=== PATIENT | female | born 1990 ===

== ENCOUNTER 2016-05-21 00:42 | Emergency (ER) | payer MEDICAID, SELFPAY ==
[2016-05-21 01:33] VITALS: BMI 37.0
[2016-05-21] MEDS ORDERED: Lactated Ringer's 1,000 ML IV SCH (01:45)
[2016-05-21 01:57] LABS: BASO # 0.1 K/uL (0.0-0.2); BASO % 1.2 % (0.0-2.0); EOS # 0.3 K/uL (0.0-0.7); EOS % 2.8 % (0.0-4.0); HEMATOCRIT 37.4 % (34.0-47.0); LYMPH # 2.7 K/uL (1.0-4.3); LYMPH % 24.7 % (20.0-40.0); MEAN CELL VOLUME 84.4 fl (81.0-99.0); MEAN CORPUSCULAR HEMOGLOBIN 27.6 pg (27.0-31.0); MEAN CORPUSCULAR HGB CONC 32.7 g/dL (33.0-37.0); MEAN PLATELET VOLUME 9.2 fl (7.2-11.7); MONO # 0.7 K/uL (0.0-0.8); MONO % 6.8 % (0.0-10.0); NEUT % 64.5 % (50.0-75.0); NRBC % 0.1 % (0.0-0.0); RED CELL DISTRIBUTION WIDTH 14.1 % (11.5-14.5); WHITE BLOOD COUNT 10.8 K/uL (4.8-10.8)
[2016-05-21 02:08] LABS: RBC URINE 2 /hpf (0-3); URINE BILIRUBIN NEGATIVE (NEGATIVE); URINE BLOOD NEGATIVE (NEGATIVE); URINE CALCIUM OXALATE CRYSTALS MOD /hpf (<OCC); URINE COLOR YELLOW (YELLOW); URINE GLUCOSE (UA) NEG (Normal); URINE KETONE TRACE mg/dL (NEGATIVE); URINE LEUKOCYTE ESTERASE NEG Leu/uL (Negative); URINE PROTEIN 30 mg/dL (NEGATIVE); WBC URINE 2 /hpf (0-5)
[2016-05-21] MEDS ORDERED: Betamethasone Soluspan 30 mg/5mL Inj Susp IM ONE (02:33)
== END 2016-05-21 23:00 | disposition home or self-care (01) ==
LOC: H.EROB2 00:42
DX: O47.03 False labor before 37 completed weeks of gestation, third trimester (principal); Z3A.33 33 weeks gestation of pregnancy

== ENCOUNTER 2016-05-22 05:45 | Emergency (ER) | payer MEDICAID, SELFPAY ==
[2016-05-21 01:33] VITALS: BMI 37.0
[2016-05-22] MEDS ORDERED: Betamethasone Soluspan 30 mg/5mL Inj Susp IM ONE (08:07)
--- NOTE | 2016-05-22 08:33 | OBHP ---
Datetime: 05/22/2016 08:27 IP Adm Impression: , intrauterine Admit Comment, IP Provider: Patient is a @ 33.6 wks for second Betamethasone shot. Patient w as seen for contractions yesterday, discharged home. Patient denies vag bleeding, leaking, +F M, occasional contractions. Patient otherwise has no abnormal antepartum issues, no medical problems, no surgeries, no medications FHR = 135 mod alana, +accels, no decels. no contractions on the monitor. Will discharge patient home after receiving Betamethasone IM and labor precautions given. F/U with cl inic at next appointment Pelvic Type - PN: Adequate Extremities - PN: Normal Abdomen - PN: Normal Back - PN: Normal Breast - PN: Normal Lungs - PN: Normal Heart - PN: Normal Thyroid - PN: Normal Neurologic - PN: Normal HEENT - PN: Normal General - PN: Normal FHR - Baseline A Provider: 135 Contraction Comments Provider: none EGA AdmitDate IP: 33.6 Vital Signs Provider: Reviewed; Within Normal Limits IP Chief Complaint: Uterine contractions NICHD Variability Prov Fetus A: Moderate 6-25bpm NICHD Accel Fetus A IP Provider: 15X15 FHR Category Provider Fetus A: Category I NICHD Decel Fetus A IP Provider: None Genitourinary Exam: Normal DTRs - PN: Normal Datetime: 05/21/2016 01:45 IP Admit Plan: Observation/Evaluation Datetime: 05/21/2016 01:15 Membranes, Provider: Intact Comments, ACOG Physical Exam: Speculum and VE done by Dr Guan: Closed, thick and high. + Yeast infection Bedside US: Vertex Gestation - Est Wks by US: 33.5 IP Hx Assessment: The History has been Reviewed and is Current
--- NOTE | 2016-05-22 08:35 | OBDCSUM ---
Datetime: 05/22/2016 08:32 Discharged to, Provider: Home Follow up at, Provider: OB Disch Instr Activity: Normal activity Disch Instr Diet: Regular Discharge Instructions, Provider: Routine instructions given Discharge Time: 05/22/2016 08:32 Follow up in weeks, Provider: next clinic appointment next week Disch Referrals: None Contraception discussed, Prov: Yes Disch Activity Restrictions: No sexual activity; Nothing in vagina - Jewell, tampons, douche Discharge Comment, Provider: Return to hospital if increased bleeding, pain, contractions, decreased FM Discharge Diagnosis Prov Other: Betamethasone IM
--- NOTE | 2016-05-22 19:38 | OBHP ---
Datetime: 05/22/2016 08:27 EGA AdmitDate IP: 33.6 Datetime: 05/21/2016 01:15 Admit Comment, IP Provider: 26 y/o F 1SAB IUP @ 33.5w presents for increased CTXs since yesterd ay afternoon. Denies VB, LOF, vomiting, nausea, trauma or sexual intercourse. Patient states she went for PNC visit on 05/11/16 and was told to come to ED if she noticed any hcange in CTXs pattern. She reports having CTXs q 3min at home associated with urinary frequency and pelvic pressure. She was petey ated for UTI and Yeast infection during . Allergies: NKA Meds: PNV PMHx: denies OBHx: 1 SAB at 10 weeks. 2 at term Labs: HIV/RPR neg, GC/Chl neg, Rub Imm, HepB neg SxHx: Armpit breast aberrant tissue SHx: Denies tobacco, etoh or drugs PE: See above A: 26 y/o, , IUP at 33.5 presents for eval of labor P: -Observation -UA, UCx -CBC -LR 1L IV bolus - monitoring Case discussed with Dr Freida Coffey PGY1 OBH ADDENDUM: pt seen _ examined by me. agree with above assessment and plan. FFN done. Contraction Comments Provider: q3min Dilatation, Provider: 0 Effacement, Provider: 0 Station, Provider: -4
--- NOTE | 2016-05-22 19:42 | OBHP ---
Datetime: 05/21/2016 01:45 Admit Comment, IP Provider: Patient revaluated. Still CTXs q3-4min, C/O pelvic pressure UA and CBC WNL P: Betamethasone 12mg IM once FFN sent monitoring Observation Case discussed with Dr Freida Coffey PGY1 OBH ADDENDUM: Agree with above o: FFN neg p: will d/c home. f/u tomorrow am for Betamet#2. Indic for betameth were d/w pt prior to adm. ptl precautions pelvic rest f/u with ob this wk
[2016-05-24] MEDS ORDERED: Oxytocin 20 units in LR 0 ML IV ONE (13:52)
== END 2016-05-22 23:00 | disposition home or self-care (01) ==
LOC: H.EROB2 05:45
DX: O47.03 False labor before 37 completed weeks of gestation, third trimester (principal); Z3A.33 33 weeks gestation of pregnancy

== ENCOUNTER 2016-05-25 11:08 | Emergency (ER) | payer MEDICAID, SELFPAY ==
--- NOTE | 2016-05-25 14:11 | OBHP ---
Datetime: 05/25/2016 11:52 IP Adm Impression: , intrauterine IP Admit Plan: Observation/Evaluation; Discharge home Admit Comment, IP Provider: 26 yr old at 34w2d GA was sent from [facility] to [facility] for contractions every 2-3 min and abdominal pain. Denies vaginal bleeding, leakage of fluid. + movements, + con tractions. Patient had a prior [facility] visit recently received 2 dose of Betamethasone 12mg IM ( 1 on 05/21/16 and 05/22/16). Patient states she is tolerating PO fluid intake. Denies hematuria, dysuria. America ellis signed BTL consent, has no other complaints or concerns at this time. Last sexual intercourse was 1 month ago. labs and care: HIV neg, RPR neg, Gc/Ch neg/neg, Rubella Immune, PPD +, CXR: no active dis ease, Tdap given, Influenza vaccine given, Yeast vaginitis treated with Terazol 7 POBHx: 2 at full term, 1 SAB at 10wks GA PMHx: none Medications: PNV PSurgHx: none Allergies: NKDA SHx: denies smoking, alcohol, drugs Vitals signs stable PE: see above Sterile pelvic exam: cervix fingertip, thick, high Monitoring: FHR 150bpm with moderate variability 6-25bpm, accelerations 15x15, no decelerati ons A: 26 yr with IUP at 34w2d , not in active labor, s/p (2) Betamethasone 12mg IM injections P: -Discharge home -Strict bed rest, no heavy lifting, no exercise, no walking up/down stairs, no sexual intercourse, nothing in vagina - labor precautions and kick counts reviewed -Follow up in OB clinic within 1 week -Adequate hydration and PO intake Liat Sampson M.D.- PGY1 Family Medicine The patient was seen with the resident I agree with the note. Patient cleared for discharge. She eligio sent home with labor precautions kick counts f/u with PMD one week Pelvic Type - PN: Adequate Extremities - PN: Normal Abdomen - PN: Normal Back - PN: Normal Lungs - PN: Normal Heart - PN: Normal Neurologic - PN: Normal HEENT - PN: Normal General - PN: Normal FHR - Baseline A Provider: 150 Contraction Comments Provider: q2 -3 min Comments, ACOG Physical Exam: Sterile vaginal exam: cervix fingertip, thick, high Gestation - Est Wks by US: 34.2 EGA AdmitDate IP: 34.2 Vital Signs Provider: Reviewed; Within Normal Limits IP Chief Complaint: Uterine contractions NICHD Variability Prov Fetus A: Moderate 6-25bpm NICHD Accel Fetus A IP Provider: 10X10 FHR Category Provider Fetus A: Category I NICHD Decel Fetus A IP Provider: None Dilatation, Provider: 0 Effacement, Provider: 0 Station, Provider: -2 Genitourinary Exam: Normal
== END 2016-05-25 23:00 | disposition home or self-care (01) ==
LOC: H.EROB2 11:08
DX: O47.03 False labor before 37 completed weeks of gestation, third trimester (principal); Z3A.34 34 weeks gestation of pregnancy

== ENCOUNTER 2016-06-10 10:05 | Emergency (ER) | payer MEDICAID, SELFPAY ==
[2016-06-10 11:10] VITALS: BMI 37.7
[2016-06-10] MEDS ORDERED: Lactated Ringer's 1,000 ML IV SCH (11:15)
[2016-06-10 12:12] LABS: RBC URINE 3 /hpf (0-3); URINE BILIRUBIN NEGATIVE (NEGATIVE); URINE BLOOD NEGATIVE (NEGATIVE); URINE COLOR YELLOW (YELLOW); URINE GLUCOSE (UA) 50 mg/dL (Normal); URINE KETONE TRACE mg/dL (NEGATIVE); URINE LEUKOCYTE ESTERASE NEG Leu/uL (Negative); URINE PROTEIN 30 mg/dL (NEGATIVE); URINE UROBILINOGEN 0.2-1.0 mg/dL (0.2-1.0); WBC URINE 6 /hpf (0-5)
[2016-06-10] MEDS ORDERED: Dextrose 5%/Lactated Ringer's 1,000 ML IV SCH (12:15)
--- NOTE | 2016-06-10 14:48 | OBHP ---
Datetime: 06/10/2016 10:44 IP Adm Impression: , intrauterine IP Admit Plan: Observation/Evaluation; Discharge home Admit Comment, IP Provider: 26 yr at 36.4wks GA presents to [facility] with complaint of ctx's q2m in. Patient reports she went to [facility] today for US and was sent here d/t her ctx's. Denies vaginal blee POLLO dossF. + movements. Patient did not eat anything today. Patient reports feeling ctx's inter mittently throughout this , received Betamethasone x 2 doses in [facility] here on 05/21/16 and . Patient has no other concerns or complaints at this time. Last sexual intercourse was months ago. care/course: HepBsAg neg, HIV neg, RPR neg, Rubella Immune, GBS neg, Gc/Ch neg/neg, PPD + , CXR neg, O Positive, Antibody neg, Growth Scan 06/10/16: BPP 8/8, NST inadequate, minimal vari ability, uterine contractions Q2min, AC 2 weeks ahead, vertex OBHx: 2 X FT , 1 SAB at 10wks GA PMHx: none SurgHx: none SocHx: denies smoking, Etoh, drugs Allergies: NKDA Meds: PNV PE: VSS, patient in no acute distress, with pelvic discomfort Cardiac: S1 S2 normal, no murmurs/rubs/gallops Lungs: CTABL Abd: gravid, non-tender Ext: no edema SVE: cervix closed/ 50% effaced/ station -3 Monitoring: FHR 145bpm, minimal variability <5 bpm, accelerations A: IUP at 36.4wks , not in active labor, P: -continuous monitoring -IV insertion, LR's 1L -Urinalysis -PO fluids Liat Sampson M.D. PGY1 OB Hospitalist Addendum: Pt seen and examined by me. Agree w/ above. 26 yo at 36+4 wks s ent from clinic today for minimal variability, BPP 8/8, now with moderate variability, reactive heart tracing. Pt reports feeling ctxns but not in a lot of pain, reports movement. VE uncha nged prior to discharge home. Pt given PTL precautions. Pt to f/u in clinic on 06/13/2016. (ES) Pelvic Type - PN: Adequate Extremities - PN: Normal Abdomen - PN: Normal Back - PN: Normal Lungs - PN: Normal Heart - PN: Normal Thyroid - PN: Normal Neurologic - PN: Normal HEENT - PN: Normal General - PN: Normal Presentation-Admit: Vertex FHR - Baseline A Provider: 145 Comments, ACOG Physical Exam: SVE: cervix closed, 50% effaced, station -3 Gestation - Est Wks by US: 36.4 EGA AdmitDate IP: 36.4 IP Chief Complaint: Uterine contractions NICHD Variability Prov Fetus A: Minimal - Undetectable to <5bpm FHR Category Provider Fetus A: Category II NICHD Decel Fetus A IP Provider: None Dilatation, Provider: 0 Effacement, Provider: 50 Station, Provider: -3 Genitourinary Exam: Normal DTRs - PN: Normal
== END 2016-06-10 14:45 | disposition home or self-care (01) ==
LOC: H.EROB2 10:05
DX: O47.03 False labor before 37 completed weeks of gestation, third trimester (principal); Z3A.36 36 weeks gestation of pregnancy

== ENCOUNTER 2016-06-16 10:34 | Emergency (ER) | payer MEDICAID, SELFPAY ==
[2016-06-16 11:35] VITALS: BMI 37.5
--- NOTE | 2016-06-16 14:08 | US ---
Ultrasound biophysical profile Indication: Decreased movement Technique: Grayscale, color flow, and M-mode sonographic images of the single live intrauterine were obtained. Comparison: None available. Findings: There is a single live intrauterine gestation. The fetus is in cephalic position. The placenta is anterior. There is no evidence of previa. There is a normal amount of amniotic fluid. The ASIM measures 13.2 cm. M-mode imaging demonstrates a heart rate to be 150.7 beats per min. movements 2/2 breathing 2/2 tone 2/2 Amniotic fluid 2/2 Total score impression: 09/27 Impression: Biophysical profile of 8 out of 8. Single live intrauterine in cephalic position with a heart rate of 150.7 beats per min.
--- NOTE | 2016-06-16 14:41 | OBHP ---
Datetime: 06/16/2016 14:37 IP Adm Impression: Term, intrauterine ; No Active Labor IP Admit Plan: Observation/Evaluation Admit Comment, IP Provider: 26-year-old 012 at 37 weeks and 3 days gestational age presents to OB D complaining of cramping and mild decreased movement. Patient reports feeling moveme nt but less than usual. Otherwise, patient without complaints. Patient denies any vaginal bleeding or leakage of fluids. records reviewed. Past medical history none Past surgical history none Medications vitamins Obstetrical history full-term normal spontaneous vaginal delivery 2 Social history no tobacco, no drugs, no alcohol Biophysical profile 8 out of 8 Assessment: 26-year-old 012 at 37 weeks gestational age with nonreactive NST, BPP 8 out of 8. Plan: Continue observation IV fluid hydration Will reassess Pelvic Type - PN: Adequate Extremities - PN: Normal Abdomen - PN: Normal Back - PN: Normal Breast - PN: Normal Lungs - PN: Normal Heart - PN: Normal Thyroid - PN: Normal Neurologic - PN: Normal HEENT - PN: Normal General - PN: Normal FHR - Baseline A Provider: 150s IP Hx Assessment: The History has been Reviewed and is Current EGA AdmitDate IP: 37.3 Vital Signs Provider: Reviewed; Within Normal Limits IP Chief Complaint: Uterine contractions; Decreased movement NICHD Variability Prov Fetus A: Moderate 6-25bpm NICHD Decel Fetus A IP Provider: None Genitourinary Exam: Normal DTRs - PN: Normal
[2016-06-16] MEDS: Lactated Ringer's 1,000 ML IV SCH ×3 (15:00→16:57)
[2016-06-16 15:59] LABS: MEAN CELL VOLUME 84.2 fl (81.0-99.0); MEAN CORPUSCULAR HEMOGLOBIN 27.6 pg (27.0-31.0); MEAN CORPUSCULAR HGB CONC 32.8 g/dL (33.0-37.0); WHITE BLOOD COUNT 10.7 K/uL (4.8-10.8)
== END 2016-06-16 18:30 | disposition home or self-care (01) ==
LOC: H.EROB2 10:34
DX: O36.8130 Decreased fetal movements, third trimester, not applicable or unspecified (principal); Z3A.37 37 weeks gestation of pregnancy

== ENCOUNTER 2016-06-28 19:53 | Emergency (ER) | payer MEDICAID, SELFPAY ==
--- NOTE | 2016-06-28 22:44 | OBDCSUM ---
Datetime: 06/28/2016 21:58 Discharged to, Provider: Home Follow up at, Provider: [facility] Disch Instr Activity: Normal activity Disch Instr Diet: Regular Discharge Diagnosis, Provider: False Labor - Undelivered Discharge Time: 06/28/2016 22:08 Follow up in weeks, Provider: 07/01/2016 @ 9am Disch Referrals: None Discharge Comment, Provider: OB Hospitalist note: This pt was seen and examined by me. Agree with a hannah note. MELISSA
--- NOTE | 2016-06-28 22:45 | OBHP ---
Datetime: 06/28/2016 22:00 IP Adm Impression: Term, intrauterine ; No Active Labor; Intact Membranes IP Admit Plan: Observation/Evaluation; Discharge home Admit Comment, IP Provider: discharge home. No labor progression -Next f/u On Monday07/01/16 at 9 am [facility] [address] Malcolm Casey PGY1 Case discussed with Dr Eason OB Hospitalist note: This pt was seen and examined by me. Agree with above note. MELISSA OB Hospitalist note: This pt was seen and examined by me. Agree with above note. MAHNDO Pelvic Type - PN: Adequate Extremities - PN: Normal Abdomen - PN: Normal Back - PN: Normal Lungs - PN: Normal Heart - PN: Normal Thyroid - PN: Normal Neurologic - PN: Normal HEENT - PN: Normal General - PN: Normal Contraction Comments Provider: occ EGA AdmitDate IP: 39.1 IP Chief Complaint: Uterine contractions NICHD Variability Prov Fetus A: Moderate 6-25bpm NICHD Accel Fetus A IP Provider: 15X15 FHR Category Provider Fetus A: Category I NICHD Decel Fetus A IP Provider: None Dilatation, Provider: 2-3cm Effacement, Provider: 50 Station, Provider: -2 Genitourinary Exam: Normal DTRs - PN: Normal Datetime: 06/28/2016 20:30 Breast - PN: Not Done FHR - Baseline A Provider: 140 Membranes, Provider: Intact Comments, ACOG Physical Exam: Us Bedside: vertex. adquate pockect ammniotic fluids ROS: General: no weakness; no fatigue HEENT: no URRUTIA; no visual dist CV: no palpitations; no no CP GI: noN/V no diarhea No epigastric pain; non radiating : no F/U/D MS: No joint pain OB Hospitalist note: This pt was seen and examined by me. Agree with above note. MELISSA Sutton Provider: Negative IP Hx Assessment: The History has been Reviewed and is Current Vital Signs Provider: Reviewed; Within Normal Limits
[2016-06-28 23:10] VITALS: BMI 39.6
== END 2016-06-28 22:08 | disposition home or self-care (01) ==
LOC: H.EROB2 19:53
DX: O47.1 False labor at or after 37 completed weeks of gestation (principal); Z3A.39 39 weeks gestation of pregnancy

== ENCOUNTER 2016-06-30 20:00 | Inpatient (IN) | payer MEDICAID, SELFPAY ==
[2016-06-30] MEDS: Lactated Ringer's 1,000 ML IV SCH ×2 (20:30→21:30)
[2016-06-30 20:44] VITALS: BMI 39.0
[2016-06-30 21:01] LABS: MEAN CELL VOLUME 83.6 fl (81.0-99.0); MEAN CORPUSCULAR HEMOGLOBIN 27.6 pg (27.0-31.0); RED CELL DISTRIBUTION WIDTH 15.6 % (11.5-14.5); WHITE BLOOD COUNT 10.7 K/uL (4.8-10.8)
--- NOTE | 2016-06-30 21:22 | OBADHP ---
Datetime: 06/30/2016 20:49 Admit Comment, IP Provider: 26 yo , at 39.3 weeks GA with ISAAC 07/04/16 by LMP presents to OBE D C/o uterine Ctx started 2 days ago. Patient evaluated 2 days ago and discharged home. Patient state s that uterine Ctx has been worse since last night every 15 minutes apart and today in the morning ev lima 7 min, 8/10 intensity. Patient denies LOF, VB, dysuria, fever, headache, N/V/D. She reports + FM. record in [facility]. Last Growth Us 06/10 BPP 8/8, placenta ant, cephalic ASIM 17.1. Next appointme nt on saturday 07/01 at 9 am PObHx: x1 fulll term 8 lbs. miscarriage x 1 @ 10 weeks PMhx: none Allergies: NKDa Meds: PNV PSurghx: right axilla lipoma PShx: No ETOH,rect drugs, cig Blood type: O+ GBS: neg antibody: neg RPR: neg HIV: neg hbsAg: neg gc/chlamy: neg Rubella: immune PPD: Positi/CXR neg TDAP: placed Flu: placed Assessment/Plan: 26 yo , at 39.1 weeks GA. active labor -Admit L _D -continous monitoring -IV Fluids -CBC. type screen Santhosh Casey PGY1 Case discusse with Dr Donovan OB Hospitalist Addendum: Pt seen by me. Agree w/ above. 26 yo at 39+3 wks in labor, ria res an epidural. FHT reassuring. GBS negative. (ES) Pelvic Type - PN: Adequate Extremities - PN: Normal Abdomen - PN: Normal Back - PN: Normal Breast - PN: Normal Lungs - PN: Normal Thyroid - PN: Normal Neurologic - PN: Normal HEENT - PN: Normal General - PN: Normal FHR - Baseline A Provider: 140 Membranes, Provider: Intact Contraction Comments Provider: irregular Q6 Comments, ACOG Physical Exam: Us bedside: vertex Vital Signs Provider: Reviewed; Within Normal Limits IP Chief Complaint: Uterine contractions NICHD Variability Prov Fetus A: Moderate 6-25bpm NICHD Accel Fetus A IP Provider: 15X15 FHR Category Provider Fetus A: Category I NICHD Decel Fetus A IP Provider: None Dilatation, Provider: 6-7 cm Effacement, Provider: 80 Station, Provider: -1 Genitourinary Exam: Normal DTRs - PN: Normal EGA AdmitDate IP: 39.3 IP Adm Impression: Term, intrauterine ; Active labor IP Admit Plan: Admit to unit; Initiate labor protocol Datetime: 06/28/2016 22:00 Heart - PN: Normal Datetime: 06/28/2016 20:30 Pool Provider: Negative IP Hx Assessment: The History has been Reviewed and is Current Datetime: 06/10/2016 10:44 Presentation-Admit: Vertex Gestation - Est Wks by US: 36.4
[2016-06-30] MEDS ORDERED: Bupivacaine HCl 0.25% PF (10 ml) Inj ONE (21:27)
[2016-06-30] MEDS ORDERED: Fentanyl/Bupivacaine HCl 250 ML EPI ONE (21:27)
[2016-06-30] MEDS ORDERED: Oxytocin 30 units/LR 500ML 30 U/500 ML BAG IV ONE (22:08)
--- NOTE | 2016-06-30 22:29 | OBPN ---
Datetime: 06/30/2016 22:24 IP Progress Impression: Normal progression of labor IP Procedures: Artificial ROM; Sterile Vag Exam IP Progress Plan: Continue present management Membranes, Provider: Ruptured Amniotic Fluid Color, Provider: Clear FHR - Baseline A Provider: 140 IP Progress Note Comment: 26 yo at 39+3 wks in labor s/p AROM clear fluid FHT reassuring, GBS negative Vital Signs Provider: Reviewed NICHD Accel Fetus A IP Provider: 15X15 NICHD Variability Prov Fetus A: Moderate 6-25bpm Dilatation, Provider: 9 Effacement, Provider: 100 Station, Provider: -2 NICHD Decel Fetus A IP Provider: None Datetime: 06/30/2016 20:49 Contraction Comments Provider: irregular Q6 FHR Category Provider Fetus A: Category I Datetime: 06/28/2016 20:30 Pool Provider: Negative Datetime: 06/10/2016 10:44 Gestation - Est Wks by US: 36.4 Presentation-Admit: Vertex
[2016-07-01] MEDS ORDERED: Oxytocin 30 units/LR 500ML 30 U/500 ML BAG IV SCH (04:13)
[2016-07-01] MEDS ORDERED: Benzocaine/Menthol SPRAY TOP PRN ×3 (04:13→08:28)
[2016-07-01] MEDS ORDERED: Oxycodone/Acetaminophen 5/325 mg Tab PO PRN ×6 (04:13→08:28)
--- NOTE | 2016-07-01 04:23 | OBDS ---
MATERNAL INFORMATION Provider Comments: Pt progresed to compete and pushed to deliver a viable female infant through luciana r fluid at 03:55am. Apgars 9 and 9. Wt 3760gms, 8#4. Mouth and nares bulb-suctioned. Infant place d on mother's abdomen. Cord clamped and cut. Cord blood collected. Placenta delivered spontaneousl y intact w/ a 3vc at 03:58am. Superficial second degree tear repaired w/ 2-0 and 3-0 rapide. Pt and baby tolerated the procedure well. EBL 150mL LABOR SUMMARY EDC: 07/04/2016 00:00 No. Babies in Womb: 1 LABOR INFORMATION Group B Beta Strep: Negative PRESENTATION/POSITION BABY A Presentation: Cephalic
[2016-07-01 06:58] VITALS: BP 129/62; PULSE 79; TEMP 98.4
[2016-07-02 08:21] LABS: HEMATOCRIT 32.4 % (34.0-47.0); MEAN CELL VOLUME 83.6 fl (81.0-99.0); MEAN CORPUSCULAR HEMOGLOBIN 28.3 pg (27.0-31.0); MEAN CORPUSCULAR HGB CONC 33.9 g/dL (33.0-37.0); RED CELL DISTRIBUTION WIDTH 15.6 % (11.5-14.5); WHITE BLOOD COUNT 9.9 K/uL (4.8-10.8)
--- NOTE | 2016-07-02 09:35 | OBPPN ---
Datetime: 07/02/2016 05:49 PP Pain Prov: Within normal limits PP Nausea Prov: Denies PP Flatus Prov: Yes PP BM Prov: No PP Breasts Prov: Normal PP Heart Prov: Normal PP Lungs Prov: Normal PP Abdomen/Uterus Prov: Normal PP Lochia Prov: Normal PP Vulva/Perineum Prov: Normal PP CVA Tenderness Prov: Normal PP Extremities Prov: Normal PP C/S Incision Prov: Not Applicable PP Progress Prov: Normal PP Comments Phys Exam Prov: Uterus: firm at level umbilicus, minimal lochia non foul smelling Left forearm hematoma [id number] related to IV extravasation, non tender PP Impression Prov: Normal progression PP Plan Prov: Continue present management PP Progress Note Prov: 26 y/o seen and examined at bedside. Patient had uneventful overnig ht. Patient reports mild pelvic pain controlled w/ pain meds. OOB/Ambulating w/o dizziness. Breast /bottle feeding w/o difficulty. Tolerating PO diet well. Lochia is less than menses in volume. Voi ding freely w/ no blood noted. Reports flatus but not bowel movement yest. Denies fevers, chills, n/v/d, CP/SOB, lightheadedness and calf pain. Reports left forearm bruising w/o pain Assessment: 26 y/o s/p on 07/01/2016 @ 3:55 am tolerating pain w/ medication, tole rating oral intake, adequate urine output, doing well on PPD1. Plan: Ibuprofen 600 mg 1 tab Q6h PO prn for mild pain. -Percocet 5/325 mg 1-2 tabs PO Q6h prn for mod/severe pain. Encourage breast feeding and ambulation. Santhosh Casey PGY-1 Pt seen adn examined agree with above Nora Horner MD Vital Signs Provider PP: Reviewed; Within Normal Limits
[2016-07-02] MEDS ORDERED: Lansinoh for Breast Feeding Mothers TP PRN (16:01)
--- NOTE | 2016-07-03 09:59 | OBDCSUM ---
Datetime: 07/03/2016 08:48 Discharged to, Provider: Home Follow up at, Provider: Kathleen Fowler Disch Instr Activity: Normal activity Disch Instr Diet: Regular Discharge Instructions, Provider: Routine instructions given Discharge Diagnosis, Provider: Term Delivered Discharge Time: 07/03/2016 12:00 Follow up in weeks, Provider: Clinic in 6 weeks Disch Referrals: None Disch Activity Restrictions: No exercising; No lifting; No sexual activity; Nothing in vagina - Inte rcourse, tampons, douche Discharge Comment, Provider: PPD # 2 Patient feeling well this AM, denies pain/dizziness/weakness/nausea or vomiting. Reports flatus, b owel movement and normal urine output, tolerating PO diet, no difficulty ambulating. Patient is breas t and bottle feeding. No concerns or complaints at this time. PE: VSS Lungs: CTABL Cardiac: S1 S2 rrr, no murmurs/rubs/gallops Abd: bowel sound present, soft, no tenderness to palpation Ext: no edema, left forearm hematoma improving-nontender A: 26yr old s/p P: -Discharge home -Ibuprofen 600mg PO Q6 PRN pain -encouraged breast feeding -no sexual intercourse, nothing in the vagina -Follow up with your obgyn in 6 weeks -Take baby to relief manager in 2-3 days Liat Sampson M.D. PGY1 Contraception after Delivery: Foam/Condoms
== END 2016-07-03 14:40 | disposition home or self-care (01) | DRG 373 ==
LOC: H.EROB2 20:00 → H.L&D 20:44 → H.OB/GYN 07-01 08:00
PROVIDERS: ADMIT Obstetrics & Gynecology; ATTEND Obstetrics & Gynecology
PROC: 0KQM0ZZ Repair Perineum Muscle, Open Approach (ICD-10-PCS; principal; 2016-06-30)
PROC: 10E0XZZ Delivery of Products of Conception, External Approach (ICD-10-PCS; 2016-06-30)
PROC: 4A1HXCZ Monitoring of Products of Conception, Cardiac Rate, External Approach (ICD-10-PCS; 2016-06-30)
DX: O70.1 Second degree perineal laceration during delivery (principal); Z37.0 Single live birth; Z3A.39 39 weeks gestation of pregnancy